=== PATIENT | male | born 1945 | race Caucasian/White ===

== ENCOUNTER 2018-03-26 12:51 | Emergency (ER) | payer OTHER ==
--- NOTE | 2018-03-26 14:03 | EDM.PDOC ---
ED HPI GENERAL MEDICAL PROBLEM - General Chief Complaint: Genitourinary Problem Stated Complaint: POSS. UTI Time Seen by Provider: 03/26/18 13:49 Source of Information: Reports: Patient History Limitations: Reports: No Limitations - History of Present Illness INITIAL COMMENTS - FREE TEXT/NARRATIVE: 72-year-old male presents for evaluation and treatment of a possible urinary tract infection. Patient reports he is visiting from the [place]. He states him and his father were on a trip around [place] and since then he has been developing problems with dysuria, increased urinary frequency and feelings of incomplete bladder emptying. Reports the symptoms started approximately one half days ago. Reports associated symptoms of body aches, chills, malaise and decreased appetite. He is unsure if he's having fevers but did have a temperature of 100.7 here in the ED. No nausea or vomiting. No back pain. Patient denies any previous history of any prostate problems. States he has not had his prostate checked regularly. Duration: Day(s): (1.5) Bladder Pain Score (Numeric/FACES): 4 - Related Data Allergies Allergy/AdvReac Type Severity Reaction Status Date / Time No Known Allergies Allergy Verified 03/26/18 13:07 Home Meds: Home Meds Cephalexin 500 mg PO BID #14 capsule 03/26/18 [Rx] Past Medical History - Past Health History Medical/Surgical History: Denies Medical/Surgical History Social & Family History - Tobacco Use Smoking Status *Q: Never Smoker - Recreational Drug Use Recreational Drug Use: No ED ROS GENERAL - Review of Systems Review Of Systems: See Below Constitutional: Reports: Fever, Malaise, Decreased Appetite, Other (reports bodyaches) GI/Abdominal: Denies: Abdominal Pain, Nausea, Vomiting : Reports: Dysuria, Frequency, Urgency, Urinary Retention Musculoskeletal: Denies: Back Pain ED EXAM, RENAL/ - Physical Exam Exam: See Below Exam Limited By: No Limitations General Appearance: Alert, WD/WN, No Apparent Distress Respiratory/Chest: No Respiratory Distress, Lungs Clear, Normal Breath Sounds Cardiovascular: Normal Peripheral Pulses, Regular Rate, Rhythm, No Murmur GI/Abdominal: Normal Bowel Sounds, Soft, Non-Tender Back Exam: No: CVA Tenderness (L), CVA Tenderness (R) Psychiatric: Normal Affect, Normal Mood Skin Exam: Warm, Dry, Normal Color Course - Vital Signs Last Recorded V/S: Last Vital Signs Temp 100.7 F H 03/26/18 13:04 Pulse 99 03/26/18 13:04 Resp 17 03/26/18 13:04 BP 141/80 H 03/26/18 13:04 Pulse Ox 97 03/26/18 13:04 - Orders/Labs/Meds Orders: Active Orders 24 hr Category Date Time Status CULTURE URINE [RM] Stat Lab 03/26/18 13:53 Ordered cefTRIAXone [Rocephin] 1 gm Med 03/26/18 14:15 Active Lidocaine 1% [Xylocaine 1%] 2.1 ml IM Q24H Medication Orders Ceftriaxone Sodium 1 gm/ (Lidocaine HCl 2.1 ml) 0 gm IM Q24H KAYCEE Last Admin: 03/26/18 14:11 Dose: 2.5 inj Labs: Laboratory Tests 03/26/18 Range/Units 13:00 Urine Color Yellow (Yellow) Urine Appearance Cloudy H (Clear) Urine pH 6.5 (5.0-8.0) Ur Specific [place] 1.025 (1.005-1.030) Urine Protein 2+ H (Negative) Urine Glucose (UA) Negative (Negative) Urine Ketones Negative (Negative) Urine Occult Blood 3+ H (Negative) Urine Nitrite Negative (Negative) Urine Bilirubin Negative (Negative) Urine Urobilinogen 4.0 H (0.2-1.0) Ur Leukocyte Esterase 3+ H (Negative) Urine RBC 20-30 H (0-5) /hpf Urine WBC 30-40 H (0-5) /hpf Ur Epithelial Cells Not seen (0-5) /hpf Urine Bacteria Many H (FEW) /hpf Urine Mucus Few (FEW) /hpf Meds: Medications Generic Name Dose Route Start Last Admin Trade Name Freq PRN Reason Stop Dose Admin Ceftriaxone Sodium 1 gm/ 0 gm 03/26/18 14:15 03/26/18 14:11 Lidocaine HCl 2.1 ml IM 2.5 inj Q24H KAYCEE Administration - Re-Assessments/Exams Free Text/Narrative Re-Assessment/Exam: 03/26/18 14:58 Bladder scan shows 250 mls in his bladder. He does have the tract infection. At this time I will give him a shot of Rocephin here in the ER and prescribed some medication for UTI. He was educated that he may require urinary catheter if the retention worsens. He will be in [place] for the next week. Advised to come back if symptoms change or worsen. Discharge instructions as documented. Departure - Departure Time of Disposition: 14:03 Disposition: Home, Self-Care 01 Condition: Fair Clinical Impression: UTI, Urinary tract infectious disease - Discharge Information Prescriptions: Cephalexin 500 mg PO BID #14 capsule Instructions: Urinary Tract Infection, Adult Referrals: PCP,None [Primary Care Provider] - Forms: ED Department Discharge Additional Instructions: Keflex 1 Twice a day for 7 days. Make sure you're drinking plenty of fluids. [id number] Tylenol or Motrin as needed for pain and discomfort. Please return to the ER if your symptoms change or worsen, in particular if you are unable to urinate we would like to see you back here. It is possible that she will may end up getting a urinary catheter. - My Orders Last 24 Hours: My Active Orders 03/26/18 13:53 CULTURE URINE [RM] Stat 03/26/18 14:15 cefTRIAXone [Rocephin] 1 gm Lidocaine 1% [Xylocaine 1%] 2.1 ml IM Q24H - Assessment/Plan Last 24 Hours: My Active Orders 03/26/18 13:53 CULTURE URINE [RM] Stat 03/26/18 14:15 cefTRIAXone [Rocephin] 1 gm Lidocaine 1% [Xylocaine 1%] 2.1 ml IM Q24H
[2018-03-26] MEDS ORDERED: cefTRIAXone 1 GM, Lidocaine 1% 2.1 ML IM SCH ×2 (14:15)
== END 2018-03-26 14:18 | disposition home or self-care (01) ==
LOC: JD.ED 12:51
DX: N39.0 Urinary tract infection, site not specified (principal)
CPT/HCPCS: 51798; 81001; 87086; 87088; 87186; 96372; 99283; J0696